=== PATIENT | female | born 1930 | race Caucasian/White ===

== ENCOUNTER 2022-01-18 11:36 | Emergency (ER) | payer MEDICARE, OTHER ==
--- NOTE | 2022-01-18 12:31 | ED Physician Documentation ---
History of Present Illness - Stated complaint Stated Complaint: FALL/NECK PX - Chief complaint Chief Complaint: Trauma Hd/Nk - Additonal information Additional information: 89-year-old female was brought to the emergency department for evaluation of neck and right shoulder pain after a fall. She was attempting to get in the shower when she reports she slipped on the wet shower and could not hold onto the handrail. She did not lose her consciousness. She is not anticoagulated. She does have a history Of hypotension for which she is on midodrine. She denied fainting episode. States she had a similar fall in September that seriously injured her shoulders though she did not seek treatment. Since this fall she has had pain especially with the left shoulder. Today she is complaining of right shoulder and right rib pain in addition to the neck pain. She presents via EMS in a rigid cervical collar. Nonfocal. Review of Systems Constitutional: denies: Fever, Chills Eyes: reports: Reviewed and negative Nose: reports: Reviewed and negative Throat: reports: Reviewed and negative Cardiac: reports: Reviewed and negative Respiratory: reports: Reviewed and negative GI: reports: Reviewed and negative : reports: Reviewed and negative Skin: reports: Reviewed and negative Musculoskeletal: reports: Neck pain, Back pain, Joint pain Neurologic: reports: Reviewed and negative PD PAST MEDICAL HISTORY - Present Medications Home Medications: Ambulatory Orders Medication Instructions Recorded Confirmed Acetaminophen [Tylenol] 650 mg PO Q6H PRN #30 tab 01/18/22 Cholecalciferol (Vitamin D3) 125 mcg PO DAILY 01/18/22 01/18/22 [D3-5000] Diclofenac Sodium 1% Gel [Voltaren 1 applic TOP QID PRN 01/18/22 01/18/22 Gel] Loratadine [Allergy Relief] 10 mg PO DAILY 01/18/22 01/18/22 Mecobalamin [B12 Active] 1,000 mcg PO DAILY 01/18/22 01/18/22 Midodrine [ProAmatine] 2.5 mg PO BID 01/18/22 01/18/22 - Allergies Allergies/Adverse Reactions: Allergies Allergy/AdvReac Type Severity Reaction Status Date / Time No Known Drug Allergies Allergy Verified 01/18/22 13:10 PD ED PE NORMAL - General General: Alert and oriented X 3, No acute distress, Well developed/nourished - HEENT HEENT: Atraumatic, Moist mucous membranes - Neck Neck: Supple, no meningeal sign, No adenopathy, Other (Rigid cervical collar in place) - Cardiac Cardiac: RRR, No murmur - Respiratory Respiratory: No respiratory distress, Clear bilaterally - Abdomen Abdomen: Normal bowel sounds, Soft, Non tender - Back Back: No CVA TTP, No spinal TTP - Extremities Extremities: No deformity, No tenderness to palpate, Normal ROM s pain, Other (Patient is able to move both her arms normally and extend shoulders up above her head though she does report bilateral shoulder pain.) - Neuro Neuro: Alert and oriented X 3, gopherman 2-12 intact Eye Opening: Spontaneous Motor: Obeys Commands Verbal: Oriented GCS Score: 15 Results - Vitals Vitals: Vital Signs - 24 hr 01/18/22 01/18/22 01/18/22 11:40 12:05 13:10 Temperature 36.6 C Heart Rate 76 70 69 Respiratory 18 16 Rate Blood Pressure 155/86 H 131/73 H 128/82 H O2 Saturation 100 131 H 99 Oxygen O2 Source Room air - Rads (name of study) cervical CT Radiology: Final report received (No CT evidence of acute traumatic spinal injury) CT head Radiology: Final report received (No acute intracranial process. Moderate atrophy and chronic microvascular ischemic changes) CT chest Radiology: Final report received (Subtle mid age-indeterminate L1 compression deformity. Correlate for point tenderness. No evidence for acute fractures otherwise) shoulders bilateral xr Radiology: Final report received (No acute findings) PD MEDICAL DECISION MAKING - ED course Complexity details: reviewed results, re-evaluated patient, considered differential, d/w patient ED course: 89-year-old female presents emergency department for evaluation of neck pain back pain and bilateral shoulder pain after a fall in which she was getting into a shower and slipped on the wet floor. She did not strike her head or lose consciousness. She reports a similar fall in September in which she injured her left shoulder but never sought evaluation or treatment of. She denies any cardiac or stroke history. She does have a history of hypotension for which she takes midodrine. She is had no nausea or vomiting. 9 she presents very well-appearing groomed and dressed and in no apparent distress. Neurologically no focal deficits. She does have a rigid cervical collar in place. Given the mechanism CT that was completed of the neck that showed no acute traumatic findings. I personally removed her collar at 1440 and found that she was able to fully range her neck with no pain elicited. CT of the head was also completed that showed no acute intracranial injuries. She had reported right-sided rib pain and a CT of the chest showed no acute rib fractures. There is an age-indeterminate L1 compression fracture. I was unable to elicit tenderness of the lumbar spine. Patient requested bilateral shoulder x-rays. These were completed today in the emergency department and included a humeral view without findings of fracture. I suspect that she has persistent pain in the left shoulder likely due to a rotator cuff injury after the fall in September. These findings were discussed with the patient. She did request a prescription for Tylenol which I have levied. She is encouraged to follow closely with her primary care provider. Otherwise emergent return precautions were discussed Departure - Departure Disposition: 01 Home, Self Care Clinical Impression: Fall from ground level Bilateral shoulder pain Qualifiers: Chronicity: chronic Qualified Code(s): M25.511 - Pain in right shoulder; M25.512 - Pain in left shoulder; G89.29 - Other chronic pain Compression fracture of L1 lumbar vertebra Qualifiers: Encounter type: initial encounter Qualified Code(s): S32.010A - Wedge compression fracture of first lumbar vertebra, initial encounter for closed fracture Condition: Stable Record reviewed to determine appropriate education?: Yes Instructions: ED Fx Comp Vertebral Follow-Up: Provider,Other [Primary Care Provider] - Prescriptions: Acetaminophen [Tylenol] 650 mg PO Q6H PRN #30 tab PRN Reason: Pain Comments: Nicole You were seen today in the emergency department after a fall while attempting to get into the shower at your care facility. You had reported some bilateral shoulder pain that is been present since a fall in September. You also had initially some neck pain and back pain. We did do a CT of your head and neck. There is nothing to suggest bruising or bleeding on the brain. No cervical spine fractures. We did complete x-rays of both shoulders including the humerus and there are no broken bones. I suspect that you have had a shoulder sprain or even a mild rotator cuff injury after your fall in September. I would like you to follow-up with your primary care doctor. You could benefit from some physical therapy for the shoulder pain. I have sent a prescription for some Tylenol to the [facility] pharmacy that you can take 3-4 times a day as needed for any discomfort. We also did a CT of your chest because you had reported some rib pain. There are no fractured vertebrae. Your lungs appeared normal. We do see a very old 1st lumbar compression fracture. You are not tender in this area. This may be from the fall in September. At this time there is no specific treatment required for it though I do encourage you to discuss this with your primary care doctor.
[2022-01-18 13:11] VITALS: BP 128/82
--- NOTE | 2022-01-18 13:21 | XRAY Report ---
PROCEDURE: Shoulder 3 View BILAT INDICATIONS: pain after fall TECHNIQUE: 3 views of the shoulder were acquired. COMPARISON: None. FINDINGS: Bones: Right rotator cuff repair anchors present. High riding humeral head indicative of chronic rot ator cuff tear and muscular atrophy. Moderate acromioclavicular and glenohumeral osteoarthritis. No f ractures or dislocations. No suspicious bony lesions. Visualized ribs appear intact. Soft tissues: No suspicious soft tissue calcifications. IMPRESSION: No acute finding. Reviewed by: Josias Soares MD on 01/18/2022 1:20 PM PST Approved by: Josias Soares MD on 01/18/2022 1:20 PM PST Station ID: [id number]
--- NOTE | 2022-01-18 13:43 | CT Report ---
PROCEDURE: HEAD WO INDICATIONS: fall in shower TECHNIQUE: Noncontrast 4.5 mm thick angled axial sections acquired from the foramen magnum to the vertex. For r adiation dose reduction, the following was used: automated exposure control, adjustment of mA and/or kV according to patient size. COMPARISON: None. FINDINGS: Image quality: Excellent. The ventricular system and cortical sulci demonstrate atrophy, consistent for patient's stated age. There are areas of hypodensity in the periventricular and subcortical white matter. There is no acut e intra or extra-axial fluid collection. No acute hemorrhage, mass lesion or midline shift. Brainst em is unremarkable. Globes are symmetrical. Sinuses are aerated. Osseous structures are intact. IMPRESSION: 1. No acute intracranial process. 2. Moderate atrophy and chronic microvascular ischemic changes. Reviewed by: Lucia Bangura MD on 01/18/2022 1:41 PM PST Approved by: Lucia Bangura MD on 01/18/2022 1:41 PM [facility] Station ID: [id number]
--- NOTE | 2022-01-18 13:57 | CT Report ---
PROCEDURE: CERVICAL SPINE WO INDICATIONS: fall in shower TECHNIQUE: Noncontrast 3 mm thick sections acquired from the skull base to the T4 level. Sagittal and coronal r eformats were then constructed. For radiation dose reduction, the following was used: automated exp osure control, adjustment of mA and/or kV according to patient size. COMPARISON: None. FINDINGS: Image quality: Excellent. Bones: No fractures or dislocations. Visualized superior ribs are intact. Soft tissues: Prevertebral soft tissues are normal in thickness. No paravertebral hematomas. No ap ical pneumothoraces. IMPRESSION: No CT evidence of acute traumatic cervical spine injury. Reviewed by: Josias Soares MD on 01/18/2022 1:55 PM PST Approved by: Josias Soares MD on 01/18/2022 1:55 PM PST Station ID: [id number]
--- NOTE | 2022-01-18 14:00 | CT Report ---
PROCEDURE: CHEST WO INDICATIONS: Right rib pain after fall, thoracic back pain after fall TECHNIQUE: Noncontrast 1mm axial images were acquired from the pulmonary apices to the posterior costophrenic an gles. Axial 5 mm soft tissue kernel reconstructions were performed as well as 8 mm axial MIP and cor onal and sagittal 5 mm reformations. For radiation dose reduction, the following was used: automate d exposure control, adjustment of mA and/or kV according to patient size. COMPARISON: None FINDINGS: Image quality: Excellent. Lungs and pleura: No acute airspace opacity. No significant pleural abnormality. Mediastinum: Normal heart size. No pericardial effusion. No structural enlarged mediastinal or hilar lymph node by CT size criteria. Bones and chest wall: Age indeterminate L1 vertebral body height loss with slight anterior wedging an d possible superior cortex fracture on series 9 image 34). Vertebral body heights otherwise maintaine d. No acute rib fracture identified. IMPRESSION: Subtle mild age-indeterminate L1 compression deformity. Correlate for point tenderness. No evidence of acute fracture otherwise. Reviewed by: Josias Soares MD on 01/18/2022 1:59 PM PST Approved by: Josias Soares MD on 01/18/2022 1:59 PM PST Station ID: [id number]
== END 2022-01-18 14:59 | disposition home or self-care (01) ==
LOC: ED 11:36
DX: M25.511 Pain in right shoulder (principal); M25.512 Pain in left shoulder; G89.29 Other chronic pain; M48.56XA Collapsed vertebra, not elsewhere classified, lumbar region, initial encounter for fracture
CPT/HCPCS: 99282; 99284

== ENCOUNTER 2022-03-11 14:25 | Outpatient (CLI) | payer MEDICARE, OTHER ==
--- NOTE | 2022-03-11 16:26 | XRAY Report ---
PROCEDURE: Foot 2 View RT INDICATIONS: DIFFICULTY BEARING WEIGHT ON RIGHT LOWER EXTREMITY TECHNIQUE: 2 views of the foot were acquired. COMPARISON: None FINDINGS: Bones: No fractures or dislocations. No suspicious bony lesions. Generalized decreased osseous mine ralization present. Second through fifth toes are held in flexion. First interphalangeal joint space and narrowing with marginal osteophyte present. Soft tissues: No tibiotalar joint effusion. Achilles tendon appears normal. IMPRESSION: Mild degenerative changes and osteopenia without fracture or foreign body Reviewed by: Stephen Bolivar MD on 03/11/2022 3:24 PM [place] Approved by: Stpehen Bolivar MD on 03/11/2022 3:24 PM AKST Station ID: [id number]
--- NOTE | 2022-03-11 17:56 | XRAY Report ---
PROCEDURE: Knee 3 View RT INDICATIONS: Difficulty BEARING WEIGHT ON RIGHT LOWER EXTREMITY TECHNIQUE: 3 views of the right knee(s) were acquired. COMPARISON: None. FINDINGS: Bones: No fractures or dislocations. No suspicious bony lesions. Generalized decreased osseous mine ralization present. Total knee arthroplasty in good position Soft tissues: No joint effusion. No suspicious soft tissue calcifications. IMPRESSION: Total right knee arthroplasty in good position. No evidence of hardware failure or loosening Reviewed by: Stephen Bolivar MD on 03/11/2022 4:55 PM AKST Approved by: Stephen Bolivar MD on 03/11/2022 4:55 PM AKST Station ID: [id number]
--- NOTE | 2022-03-11 18:13 | XRAY Report ---
PROCEDURE: Hip w/Pelvis 2-3V RT INDICATIONS: DIFFICULTY BEARING WEIGHT ON RIGHT LOWER EXTREMETY TECHNIQUE: AP pelvis with lateral view(s) of the right hip(s). COMPARISON: None. FINDINGS: Bones: No fractures or dislocations. Pelvic ring appears intact. No suspicious bony lesions. Bila teral acetabular joint space and narrowing. No fracture or dislocation. Pelvic ring intact. Degenerat curt changes in the lower lumbar spine Soft tissues: The visualized bowel gas pattern is normal. No suspicious soft tissue calcifications. IMPRESSION: Mild bilateral hip joint space narrowing. No fracture. Reviewed by: Stephen Bolivar MD on 03/11/2022 5:12 PM [place] Approved by: Stephen Bolivar MD on 03/11/2022 5:12 PM [place] Station ID: [id number]
== END 2022-03-11 14:26 | disposition home or self-care (01) ==
LOC: DI.S 14:25
PROVIDERS: ATTEND Pediatrics
DX: M19.071 Primary osteoarthritis, right ankle and foot (principal); M85.871 Other specified disorders of bone density and structure, right ankle and foot; Z96.651 Presence of right artificial knee joint; M25.852 Other specified joint disorders, left hip; M25.851 Other specified joint disorders, right hip; R29.898 Other symptoms and signs involving the musculoskeletal system